=== PATIENT | female | born 2000 | race African-American/Black ===

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

== ENCOUNTER 2018-04-27 16:51 | Emergency (ER) | payer BC, OTHER ==
[~2018-04-27] VITALS: Ht 160 cm; Wt 54.4 kg
[~2018-04-27 16:51] MED LIST changes: +AFRIN30 ML NASAL; +FLONASE 0.05%50 MCG NASAL; +PREDNISONE 20 M20 M1 PO; +PROAIR HFA8.5 GM INH; +TESSALON PERLE100 MG PO
[2018-04-27] MEDS ORDERED: FLOVENT HFA 4444 MCG INH (17:19)
[2018-04-27 17:58] LABS: URINE BILIRUBIN NEGATIVE (Negative); URINE BLOOD NEGATIVE (Negative); URINE CLARITY CLEAR; URINE COLOR YELLOW; URINE GLUCOSE-RANDOM* NEGATIVE (Negative); URINE KETONES NEGATIVE (Negative); URINE LEUKOCYTES-REFLEX NEGATIVE (Negative); URINE NITRITE-REFLEX NEGATIVE (Negative); URINE PROTEIN (DIPSTICK) NEGATIVE (Negative); URINE SPECIFIC GRAVITY 1.015 (1.005-1.035); URINE UROBILINOGEN 0.2 E.U./dl (0.2-1.0)
[2018-04-27] MEDS ORDERED: MOBIC15 MG PO (18:54)
[2018-04-27 19:05] VITALS: BP 129/69
== END 2018-04-27 19:06 | disposition home or self-care (01) ==
LOC: ER 16:51
PROVIDERS: Emergency Medicine
DX: R51 Headache (principal); M25.561 Pain in right knee; M79.651 Pain in right thigh; R35.0 Frequency of micturition; J45.909 Unspecified asthma, uncomplicated; Z91.010 Allergy to peanuts; Z91.018 Allergy to other foods